=== PATIENT | male | born 1955 | race Caucasian/White ===

== ENCOUNTER → 2016-12-03 | Outpatient (CLI) | payer OTHER ==
[~2016-12-03] MED LIST: ACET-1256 PO; FLUO20CA35 PO
--- NOTE | 2016-12-04 05:36 | PAP/PSG TECHNICIAN REPORT ---
[facility] Insurance Customer Service Specialist Polysomnogram Report Study name: None Report date: 12/04/2016 Study date: 12/03/2016 Referring Physician: Gil Matias M.D. Name: NINA CAPELLAN Interpreting Physician: Gil Matias M.D. Date of : 1955 Insurance Customer Service Specialist: Brianna Escobar RPSGT. Sex: Male Age: 61 StudyType: PSG Weight: 232 lbs Height: 61 years, Height 5' 10" BMI: 33.28 Medications: Fluoxtine 20 mg Patient History 61 yr. old male here for an updated titration sleep study. Patient does not feel as well as he thinks he should with his new machine. Parameters Monitored NPSG: E1-M2, E2-M1, Fp1-M2, Fp2-M1, F3-M2, F4-M2, F4-M1, C3-M2, C4-M2, C4-M1, O1-M2, O2-M2, O2-M1, T3-M2, T4-M1, P3-M2, P4-M1, CHIN1, CHIN2, HR, EKG, Legs, PFLOW, SNOR, FLOW, CFLOW, Tidal Volume, THOR, ABDO, SpO2, PLTH, CPRESS, ETCO2 Wave, ETCO2, pH Sleep Architecture Sleep Stages Time at Lights Off 10:07:39 PM STAGES Time (min.) TST (%) Time at Lights On 5:27:39 AM Wake 52.5 -- Total Recording Time (TRT) 440.50 min. N1 42.5 11 Total Sleep Period (TSP) 428.5 min. N2 177.5 46 Total Sleep Time (TST) 387.5min. N3 70.5 18 Awake Time 53.0 min. REM 97.0 25 Wake after Sleep Onset 41.5 min. Sleep Efficiency (SE) 88 % Sleep Onset Latency (GAYLA) 11.0 min. Number of Stage 1 Shifts None Awakenings 38 Stage Changes 153 Number of REM periods 10 REM 97.0 25 REM Latency 96.5 min. NREM 290.5 75 Body Position Analysis Supine Right Left Side Prone Vertical Total Sleep Time (min.) 15.4 126.5 258.0 384.50 0.0 0.0 Total Sleep Time (%) 1% 33% 67% 99 0% N/A% Total Sleep Time REM (min.) 0.0 46.5 50.5 None 0.0 0.0 Total Sleep Time NREM (min.) 3.0 80.0 207.5 None 0.0 0.0 Intermittent Wake (min.) 12.4 20.2 19.9 None 0.0 0.0 Total Sleep Period (%) 1% None None None None None Arousals Myoclonus (PLM) * Events Count Index Events Count Index Spontaneous 3 0 Events Awake (PLMW) 77 88.0 Respiratory 2 0.6 Events Asleep w/ Arousal (PLMA) 42 6.5 PLM 40 7 Events Asleep w/o Arousal (PLMS) 373 57.8 Snoring 16 2 Total Asleep 415 64.3 Total 61 9 Total 492 67 Respiratory Analysis * CA OA MA CH H RERA Total Count 0 2 0 0 12 0 14 Index 0.0 0.3 0.0 0 1.9 0 2.2 Mean Duration 0.0 13.8 0.0 0.00 15.5 0.0 15.3 Longest Duration 0.0 15.6 0.0 0.00 0.0 0.0 22.1 Respiratory Event Summary Total Supine ~Supine Right Left Prone REM NREM Apneas Count 2 0 2 0 2 N/A 0 2 Index 0.3 0 0 0.0 0.5 N/A 0 0 Hypopneas (4% Desat) Count 12 4 8 4 4 N/A 0 12 Index 1.9 80.0 1 1.9 0.9 N/A 0.0 2.5 Apneas & All Hypopneas Count 14 4 10 4 6 N/A 0 14 Index 2.2 80 2 2 1 N/A 0.0 2.9 Respiratory Events (Map Plotter+All Hyp+RERA) Count 14 4 10 4 6 N/A 0 14 Index 2.2 80 2 1.9 1.4 N/A 0.0 2.9 Respiratory Related Arousal Count 2 4 3 0 3 N/A 0 4 Index 0.6 20 0 0 1 N/A 0 1 Snoring Analysis Supine Right Left Prone REM NREM Total Snore duration 9.9 min Snores count 2 143 271 N/A 11 405 416 Snore mean duration 1.4 Sec Snores index 40 68 63 N/A 6.8 83.6 64.4 TST with snoring (%) 2.6% Desaturation Event Summary: Minimum %SpO2 Event Count Mean/Min/Max Duration(sec.) Desaturation Index % Time In Bed > 90 35 24.6 / 10.0 / 59.0 5.0 97.4 86 - 90 3 10.5 / 4.0 / 15.5 15.8 2.6 81 - 85 0 N/A 0.0 0.0 76 - 80 0 N/A 0.0 0.0 71 - 75 0 N/A 0.0 0.0 66 - 70 0 N/A 0.0 0.0 61 - 65 0 N/A 0.0 0.0 56 - 60 0 N/A 0.0 0.0 51 - 55 0 N/A 0.0 0.0 < 50 0 N/A 0.0 0.0 Total REM NREM Awake <50% 0.0 min. 0.0 min. 0.0 min. 0.0 min. 51 - 60% 0.0 min. 0.0 min. 0.0 min. 0.0 min. 61 - 70% 0.0 min. 0.0 min. 0.0 min. 0.0 min. 71 - 80% 0.0 min. 0.0 min. 0.0 min. 0.0 min. 81 - 90% 11.4 min. 0.0 min. 6.7 min. 4.7 min. 91 - 100% 420.5 min. 94.9 min. 280.8 min. 44.7 min. Average 93 93 93 92 Minimum SpO2 86 91 88 86 Desaturation Event Index 5.0 0.0 3.9 20.6 # Desat. Events below 89% 5 N/A 1 4 Time(%) with Saturation below 89% 0.2 0.0 0.0 0.2 Time(min.) with Saturation below 89% 0.9 0.0 0.2 0.7 Time (mins) REM (mins) NREM (mins) % of TST SpO2 Below 90% 17 N/A N17 0.5 SpO2 Below 88% 1 0 0 0 Heart Rate Analysis Min (bpm) Max (bpm) Average (bpm) Awake 48 127 61 NREM 48 127 57 REM 49 68 54 Overall 48 127 57 Supplemental O2 Values Minimum O2 level: None Value Start Time End Time Insurance Customer Service Specialist Comments Mr. Capellan slept in the right, left, and supine positions. No cardiac arrhythmia. Frequent PLMs noted. No bruxism noted. CPAP was initiated at +4 CMH2O room air and up-titrated to a level of +6 CMH2O Cflex 2. A nasal pillow system from [employer] was used during titration. Mr. Capellan did not wake to use the restroom during the night. Mr. Capellan stated, "I did not sleep as well as I do when I am in my own bed". The final report will be interpreted and signed by a sleep physician. The completed physician report will then be placed in the patient medical record. Therapy Event: Therapy (cm H20) 4 5 6 Total Time at Pressure (min.) 166.8 156.5 116.8 TST at Pressure (min.) 137.8 141.5 108.3 # Periods 1 1 1 Sleep Onset (min.) 11.0 0.0 0.0 REM Onset (min.) 107.5 48.7 1.8 Sleep Efficiency % 82 90 92 Wakefulness (%) 17.4 9.6 7.3 Wakefulness (min.) 29.0 15.0 8.5 NREM 1 (%) 9.6 11.5 7.3 NREM 1 (min.) 16.0 18.0 8.5 NREM 2 (%) 26.5 51.1 45.6 NREM 2 (min.) 44.3 80.0 53.3 NREM 3 (%) 29.1 14.1 0.0 NREM 3 (min.) 48.5 22.0 0.0 REM (%) 17.4 13.7 39.8 REM (min.) 29.0 21.5 46.5 # Arousals 15 28 18 Arousal Index 6.5 11.9 10.0 # Snore 107 183 126 Snore Index 46.6 77.6 69.8 AHI 0.0 5.1 1.1 AHI Supine N/A 80.0 N/A AHI Non-Supine 0.0 3.5 1.1 NREM AHI 0.0 6.0 1.9 REM AHI 0.0 0.0 0.0 RDI 0.0 5.1 1.1 # Obstructive 0 2 0 # Central Ap 0 0 0 # Mixed 0 0 0 # Hypopneas 0 10 2 RERAS 0 0 0 Total Respiratory Events 0 12 2 Time Below SpO2 89.00% (min.) 0.0 0.2 0.0 Mean NREM SpO2 (%) 93 93 93 Mean REM SpO2 (%) 93 93 94 Mean Sleep SpO2 (%) 93 93 93 Min NREM SpO2 (%) 89 88 90 Min REM SpO2 (%) 92 91 92 Position Supine (min.) 0.0 3.0 0.0 Position Non-supine (min.) 137.8 138.5 108.3 LM Index Sleep 115.8 34.8 37.1 LM Index NREM 138.5 34.0 44.7 LM Index REM 31.0 39.1 27.1 Mean Heart Rate (bpm) 60 55 54 Min Heart Rate (bpm) 51 49 48
--- NOTE | 2016-12-08 05:41 | POLYSOMNOGRAPH REPORT ---
CLINICAL DATA: A 61-year-old male with BMI of 33.28 referred by myself and Dr. Johnson. He had sleep apnea diagnosed many years ago at [facility], and was on CPAP 7 cm of water pressure. He had an old machine and so his machine was recently replaced and its pressure was set at 7 cm of water pressure. He does not feel well on this current setting. He is here for a new titration study. SLEEP ARCHITECTURE: Total sleep period was 428.5 minutes. Total sleep time was 387.5 minutes, divided between 290.5 minutes of non-REM sleep and 97 minutes of REM sleep. Sleep onset latency was 11 minutes. REM latency was 96.5 minutes. Sleep efficiency was 88%. Wake after sleep onset was 41.5 minutes. Sleep consisted of stage N1 11%, N2 46%, N3 18%, REM 25%. AROUSAL DATA: 61 arousals were recorded for an index of 9 per hour. PERIODIC LIMB MOVEMENT DATA: 450 limb movements during sleep were noted for an index of 64.3 per hour with arousal index of 6.5 per hour. RESPIRATORY DATA: The AHI was 2.2. There were 2 obstructive apneic episodes. The longest duration of apnea was 15.6 seconds. There were 12 hypopneic episodes. The mean duration of hypopnea was 15.5 seconds. OXIMETRY DATA: No significant hypoxemia was seen. Oxygen manpreet was 88% during non-REM sleep. Mean saturation of 93%. ELECTROCARDIOGRAM: Heart rates ranged from 48-127 beats per minute. No arrhythmias were noted. CARDIAC CATH TECHNOLOGIST'S COMMENTS AND TREATMENT SUMMARY: The patient slept in the right, left, and supine positions. CPAP was started using a nasal pillow system from [employer]. The patient was titrated up to 6 cm of water pressure, C-Flex setting #2. At his final pressure setting, he slept for 108.3 minutes with an AHI of 1.1. IMPRESSION: Obstructive sleep apnea corrected with CPAP 6 cm of water pressure, C-Flex setting #2. RECOMMENDATIONS: The patient's CPAP would be reset to the above noted pressure settings. [facility]
== END | disposition home or self-care (01) ==
LOC: C.NEUR 21:00
PROVIDERS: ATTEND Internal Medicine Pulmonary Disease
DX: G47.33 Obstructive sleep apnea (adult) (pediatric) (principal)

== ENCOUNTER → 2016-12-08 | Outpatient (CLI) | payer OTHER ==
[~2016-12-08] VITALS: Ht 177.8 cm; Wt 101.7 kg
[2016-12-08 14:27] VITALS: BP 146/86; PULSE 65; Ht 177.8 cm; Wt 101.7 kg
== END | disposition home or self-care (01) ==
LOC: C.NEUR 14:20
PROVIDERS: ATTEND Internal Medicine Pulmonary Disease
DX: G47.33 Obstructive sleep apnea (adult) (pediatric) (principal); G47.61 Periodic limb movement disorder

== ENCOUNTER → 2016-12-08 | Outpatient (CLI) | payer OTHER ==
[2016-12-08 16:48] LABS: BASO % 0.3 %; BASO ABS # 0.02 K/uL (0-0.2); COMPLETE YES; EOS % 1.9 %; HEMATOCRIT 47.1 % (42-52); IG% 0.3 %; LYMPH % 22.2 %; LYMPH ABS # 1.53 K/uL (1.2-3.4); MEAN CORPUSCULAR HEMOGLOBIN 30.3 pg (25-34); MEAN CORPUSCULAR HGB CONC 34.4 g/dl (32-36); MEAN PLATELET VOLUME 12.8 fL (7.4-10.4); MONO % 10.4 %; NEUT % 64.9 %; PLATELET COUNT 155 K/uL (130-400); RED BLOOD COUNT 5.35 M/uL (4.7-6.1)
== END | disposition home or self-care (01) ==
LOC: C.LABBC 14:59
PROVIDERS: ATTEND Internal Medicine Pulmonary Disease
DX: G47.61 Periodic limb movement disorder (principal)

== ENCOUNTER → 2017-01-19 | Outpatient (CLI) | payer OTHER | END | disposition home or self-care (01) | LOC: C.PATHSPEC 12:48 | PROVIDERS: ATTEND Internal Medicine | DX: B07.9 Viral wart, unspecified (principal) ==

== ENCOUNTER → 2017-06-08 | Outpatient (CLI) | payer OTHER ==
[~2017-06-08] VITALS: Ht 177.8 cm; Wt 103.6 kg
[2017-06-08 14:33] VITALS: BP 152/87; PULSE 70; Ht 177.8 cm; Wt 103.6 kg
== END | disposition home or self-care (01) ==
LOC: C.NEUR 14:22
PROVIDERS: ATTEND Internal Medicine Pulmonary Disease
DX: G47.33 Obstructive sleep apnea (adult) (pediatric) (principal)

== ENCOUNTER → 2017-07-05 | Outpatient (CLI) | payer OTHER ==
[2017-07-05 18:14] LABS: BASO % 0.1 %; BASO ABS # 0.01 K/uL (0-0.2); COMPLETE YES; EOS % 1.9 %; HEMATOCRIT 45.1 % (42-52); IG% 0.3 %; LYMPH % 27.7 %; LYMPH ABS # 1.87 K/uL (1.2-3.4); MEAN CELL VOLUME 87.6 fL (80-100); MEAN CORPUSCULAR HEMOGLOBIN 31.3 pg (25-34); MEAN CORPUSCULAR HGB CONC 35.7 g/dl (32-36); MONO % 8.2 %; NEUT % 61.8 %; PLATELET COUNT 145 K/uL (130-400); RED BLOOD COUNT 5.15 M/uL (4.7-6.1); WHITE BLOOD COUNT 6.74 K/uL (4.8-10.8)
[2017-07-05 18:29] LABS: ALT/SGPT 28 U/L (12-78); AST/SGOT 23 U/L (15-37); BLOOD UREA NITROGEN 17 mg/dl (7-18); BUN/CREATININE RATIO 15.9 (10-20); CALCIUM 8.7 mg/dl (8.5-10.1); CARBON DIOXIDE 27 mmol/L (21-32); CHLORIDE 108 mmol/L (98-107); GLUCOSE 159 mg/dl (70-99); POTASSIUM 3.5 mmol/L (3.5-5.1); SODIUM 141 mmol/L (136-145)
[2017-07-05 18:31] LABS: ALB/GLOB RATIO 1.3 (0.9-2); ALKALINE PHOSPHATASE 81 U/L (45-117)
== END | disposition home or self-care (01) ==
LOC: C.LABSPEC 17:28
PROVIDERS: ATTEND Internal Medicine
DX: M79.1 Myalgia (principal)